=== PATIENT | female | born 1955 | race Caucasian/White ===

== ENCOUNTER 2018-10-22 12:43 | Observation (INO) | payer OTHER ==
[~2018-10-22] VITALS: Ht 160 cm; Wt 73.1 kg
[2018-10-22 13:33] LABS: HEMATOCRIT 34.3 % (37.0-47.0); HEMOGLOBIN 11.5 g/dl (12.0-16.0); IMMATURE GRANULOCYTES 0.4 % (0.0-5.0); MEAN CELL VOLUME 89.6 fL CALC (80.0-100.0); MEAN CORPUSCULAR HGB CONC 33.5 g/L CALC (32.0-36.0); NEUT# 2.7 thou/uL (2.00-7.15); RED BLOOD COUNT 3.83 mill/uL (4.20-5.60); RED CELL DISTRI WIDTH 12.1 % (11.5-15.5)
[2018-10-22 13:47] LABS: ALBUMIN 4.7 g/dL (3.2-5.0); ALKALINE PHOSPHATASE 85 u/l (38-126); ANION GAP 14 (6-22 (CALC)); BILIRUBIN, TOTAL 0.8 mg/dL (0.0-1.4); BUN 12 mg/dL (8-23); BUN/CREATININE RATIO 17 (12-20 (CALC)); CARBON DIOXIDE 25 mmol/l (22-30); CHLORIDE 103 mmol/l (95-108); CREATININE 0.7 mg/dL (0.5-1.0); GFR > 60 ML/MIN (>=60 (CALC)); GFR FOR AFR.AMER. > 60 ML/MIN (>=60 (CALC)); SGOT/AST 20 u/l (9-36); SODIUM 139 mmol/l (137-146); TOTAL PROTEIN 7.3 g/dL (6.3-8.2)
[2018-10-22] MEDS ORDERED: PANTOPRAZOLE SO40 MG PO (15:21)
[2018-10-22] MEDS ORDERED: ATACAND16 M1 PO (15:21)
[2018-10-22] MEDS ORDERED: CRESTOR10 MG PO (15:22)
[2018-10-22 15:43] LABS: CHOLESTEROL HDL RATIO 2.3 (<4.4 (CALC))
[2018-10-22 17:30] VITALS: BP 143/82
[2018-10-22 17:45] VITALS: BP 119/78
[2018-10-22 18:00] VITALS: BP 147/94
[2018-10-22 19:10] VITALS: BP 111/73
[2018-10-22 23:00] VITALS: BP 127/63
[2018-10-23 03:00] VITALS: BP 85/55
[2018-10-23 07:00] VITALS: BP 100/66
[2018-10-23 09:00] VITALS: BP 105/69
== END 2018-10-23 10:30 | disposition home or self-care (01) | DRG 313 ==
LOC: EDSEX 12:43 → ED 12:43 → ED-I 13:27 → ED 14:51 → ICU 14:52
PROVIDERS: Family Medicine; Nurse Practitioner Family; ADMIT Internal Medicine; ATTEND Internal Medicine
DX: R07.89 Other chest pain (principal); I10 Essential (primary) hypertension; J44.9 Chronic obstructive pulmonary disease, unspecified; E78.5 Hyperlipidemia, unspecified; K44.9 Diaphragmatic hernia without obstruction or gangrene; K21.9 Gastro-esophageal reflux disease without esophagitis; E66.9 Obesity, unspecified; Z63.4 Disappearance and death of family member; Z79.899 Other long term (current) drug therapy